=== PATIENT | male | born 1965 | race Caucasian/White ===

== ENCOUNTER 2016-09-09 08:20 | Emergency (ER) | payer MEDICAID ==
[~2016-09-09] VITALS: Ht 152.4 cm; Wt 78.9 kg
[2016-09-09 08:25] VITALS: Ht 152.4 cm; Wt 78.9 kg
[2016-09-09] MEDS ORDERED: IBUP-1542 PO (08:59)
[2016-09-09] MEDS ORDERED: OSLT75C PO (08:59)
[2016-09-09] MEDS ORDERED: GUAI-637 PO (08:59)
[2016-09-09] MEDS ORDERED: IBUPROFEN 600 MG TAB PO ONE (09:00)
--- NOTE | 2016-09-09 09:03 | ERD ---
ER Documentation Chief Complaint Date/Time DATE: 09/09/16 TIME: 09:00 Chief Complaint flu like symptoms x 2 days, body aches,chills, cough HPI Patient is a 50-year-old male who presents to the emergency department with flulike symptoms. Patient states symptoms started 2 days ago. Patient states that he has had low-grade fevers and chills. Patient ports tactile fevers. Patient also states that he has been having clear rhinorrhea. Patient states he has throat pain but denies any trismus, drooling or hyperextension of his neck. Patient states that he does have a productive cough with yellow phlegm production.. Patient also reports headaches and joint pain. Patient states his been taking TheraFlu and DayQuil with no relief of symptoms. Patient denies any abdominal pain, nausea, vomiting, diarrhea, chest pain, shortness of breath. Patient denies receiving flu vaccine this year. No recent travel. No sick contacts. ROS All systems reviewed and are negative except as per history of present illness. Medications Home Meds Active Scripts Ibuprofen* (Ibuprofen*) 600 Mg Tablet, 600 MG PO Q6, #30 TAB Prov:RICHIE FOURNIER PA-C 09/09/16 Oseltamivir Phosphate* (Tamiflu*) 75 Mg Capsule, 75 MG PO BID for 5 Days, CAP Prov:RICHIE FOURNIER PA-C 09/09/16 Guaifenesin* (Robitussin*) 100 Mg/5 Ml Syrup, 100 MG PO Q6H Y for COUGH, #1 BOTTLE Prov:RICHIE FOURNIER PA-C 09/09/16 Allergies Allergies: Coded Allergies: No Known Allergy (Unverified , 09/09/16) PMhx/Soc Medical and Surgical Hx: pt denies Medical Hx, pt denies Surgical Hx Hx Alcohol Use: No Hx Substance Use: No Hx Tobacco Use: No FmHx Family History: No diabetes Physical Exam Vitals Vital Signs Date Time Temp Pulse Resp B/P Pulse Ox O2 Delivery O2 Flow Rate FiO2 09/09/16 08:25 100.0 90 18 142/74 99 Physical Exam GENERAL: Well-developed, well-nourished male. Appears in no acute distress. Speaking in full sentences. HEAD: Normocephalic, atraumatic. No deformities or ecchymosis. EYE: Pupils equal, round, and reactive to light. EOMs intact. No conjunctival erythema. No eye discharge. ENT: External ear without any masses or tenderness. Auditory canals clear bilaterally. TM visualized bilaterally, non-erythematous, non-bulging. Nasal mucosa pink with no discharge. Oropharynx is pink without any tonsillar erythema or exudates. No uvula deviation. No kissing tonsils. Nontender to palpation of bilateral mastoid processes NECK: Supple. No meningismus. Normal ROM of the neck. LUNG: Coarse breath sounds HEART: Regular rate and rhythm. No murmurs, rubs or gallops. ABDOMEN: Soft, nontender, and nondistended. Positive bowel sounds in all four quadrants. No rebound tenderness, no guarding. (-) McBurney's point tenderness. No CVA tenderness. BACK: No midline tenderness. EXTREMITIES: Equal pulses bilaterally. No peripheral clubbing, cyanosis or edema. No unilateral leg swelling. NEUROLOGIC: Alert and oriented to person, place and time. Moving all four extremities. 5/5 strength in all extremities. Normal speech. Steady gait. SKIN: Normal color. Warm and dry. No rashes or lesions. Results 24 hrs Current Medications Medications (Trade) Dose Ordered Sig/Joshua Route PRN Reason Start Time Stop Time Status Last Admin Dose Admin Ibuprofen (Motrin) 600 mg ONCE ONCE PO 09/09/16 09:00 09/09/16 09:01 DC 09/09/16 08:57 Procedures/MDM ED COURSE: The patient was stable throughout ED course. I kept the patient and/or family informed of laboratory and diagnostic imaging results throughout the ED course. DIAGNOSTIC IMAGING: Read by radiologist. DIAGNOSTIC IMAGING REPORT Patient: WALLY VENTURA : 1965 Age: 50 Sex: M MR #: [id number] DOS: 09/09/16 0850 Ordering MD: RICHIE FOURNIER PA-C Location: [facility] Room/Bed: PROCEDURE: XR Chest AP portable CLINICAL INDICATION: Cough, fever TECHNIQUE: An AP portable radiograph of the chest was submitted. COMPARISON: None. FINDINGS: Support Hardware: None Cardiovascular: The cardiovascular silhouette appears unremarkable. Lung Hutchinson: A suboptimal inspiration compresses lung parenchyma and discoid atelectatic change is seen at the medial right lung base. Pleural Spaces: No pneumothorax or pleural effusion is identified. Osseous Structures: The osseous structures appear intact. Soft Tissues: The soft tissues appear unremarkable. IMPRESSION: 1. Suboptimal inspiration with discoid atelectasis seen at the medial right lung base. 2. Otherwise, unremarkable portable chest. Physician Seferino Date Time Electronically viewed and signed by Physician Seferino on 09/09/2016 09:38 RH/ CC: RICHIE FOURNIER PA-C MEDICATIONS GIVEN: Ibuprofen Patient tolerated medication well with no adverse reactions. Patient reported improvement in pain. MEDICAL DECISION MAKING: This is a 50-year-old male who presents with fevers, chills, no pain, cough and body aches 2 days. Patient denied receiving the flu vaccine this year. Vital signs were reviewed. Patient was noted to have 100.0 Fahrenheit temperature upon arrival. Patient was given ibuprofen here in the emergency department which did down trend his temperature. Patient was not hypoxic. ENT exam was normal. Lung exam revealed coarse breath sounds. Chest x-ray was obtained. Chest x-ray showed Suboptimal inspiration with discoid atelectasis seen at the medial right lung base. Otherwise, unremarkable portable chest.. Given these findings, the patients presentation is most consistent with influenza-like symptoms. I have a much lower clinical concern for pneumonia, meningitis, sinusitis, otitis externa, acute otitis media, strep pharyngitis, epiglottitis or peritonsillar abscess. Given that patient states that his symptoms started within the last 48 hours, I will empirically treat the patient with Tamiflu for his flu like symptoms. PRESCRIPTIONS: Ibuprofen, Tamiflu, Robitussin DISCHARGE: At this time, patient is stable for discharge and outpatient management. Supportive therapies such as OTC throat lozenges, salt water gurgles, popsicles and jello discussed. I have instructed the patient to follow-up with his/her primary care physician in 1-2 days. I have instructed the patient to promptly return to the ER for any new or worsening symptoms including increased pain, swelling, fever, nausea, vomiting, weakness or difficulty breathing. The patient and/or family expressed understanding of and agreement with this plan. All questions were answered. Home care instructions were provided. Departure Diagnosis: Primary Impression: Influenza-like symptoms Condition: Stable Patient Instructions: Influenza (Adult) Referrals: [facility] YOU HAVE RECEIVED A MEDICAL SCREENING EXAM AND THE RESULTS INDICATE THAT YOU DO NOT HAVE A CONDITION THAT REQUIRES URGENT TREATMENT IN THE EMERGENCY DEPARTMENT. FURTHER EVALUATION AND TREATMENT OF YOUR CONDITION CAN WAIT UNTIL YOU ARE SEEN IN YOUR DOCTORS OFFICE WITHIN THE NEXT 1-2 DAYS. IT IS YOUR RESPONSIBILITY TO MAKE AN APPOINTMENT FOR FOLOW-UP CARE. IF YOU HAVE A PRIMARY DOCTOR --you should call your primary doctor and schedule an appointment IF YOU DO NOT HAVE A PRIMARY DOCTOR YOU CAN CALL OUR PHYSICIAN REFERRAL HOTLINE AT IF YOU CAN NOT AFFORD TO SEE A PHYSICIAN YOU CAN CHOSE FROM THE FOLLOWING [facility] [address] [facility] [address] [facility] [facility] [address] [facility] [address] [facility] [address] [facility]. [facility] [address] [facility]. [facility] YOU HAVE RECEIVED A MEDICAL SCREENING EXAM AND THE RESULTS INDICATE THAT YOU DO NOT HAVE A CONDITION THAT REQUIRES URGENT TREATMENT IN THE EMERGENCY DEPARTMENT. FURTHER EVALUATION AND TREATMENT OF YOUR CONDITION CAN WAIT UNTIL YOU ARE SEEN IN YOUR DOCTORS OFFICE WITHIN THE NEXT 1-2 DAYS. IT IS YOUR RESPONSIBILITY TO MAKE AN APPOINTMENT FOR FOLOW-UP CARE. IF YOU HAVE A PRIMARY DOCTOR --you should call your primary doctor and schedule and appointment IF YOU DO NOT HAVE A PRIMARY DOCTOR YOU CAN CALL OUR PHYSICIAN REFERRAL HOTLINE AT . IF YOU CAN NOT AFFORD TO SEE A PHYSICIAN YOU CAN CHOSE FROM THE FOLLOWING [facility]: [facility] [address] [place] [address] [facility] [address] [place] [address] [facility] [address] [place] [address] Additional Instructions: Call your primary care doctor TOMORROW for an appointment during the next 1-2 days.See the doctor sooner or return here if your condition worsens before your appointment time. RICHIE FOURNIER PA-C Sep 09, 2016 09:03
--- NOTE | 2016-09-09 09:38 | RADRPT ---
PROCEDURE: XR Chest AP portable CLINICAL INDICATION: Cough, fever TECHNIQUE: An AP portable radiograph of the chest was submitted. COMPARISON: None. FINDINGS: Support Hardware: None Cardiovascular: The cardiovascular silhouette appears unremarkable. Lung Hutchinson: A suboptimal inspiration compresses lung parenchyma and discoid atelectatic change is s een at the medial right lung base. Pleural Spaces: No pneumothorax or pleural effusion is identified. Osseous Structures: The osseous structures appear intact. Soft Tissues: The soft tissues appear unremarkable. IMPRESSION: 1. Suboptimal inspiration with discoid atelectasis seen at the medial right lung base. 2. Otherwise, unremarkable portable chest. Physician Seferino Date Time Electronically viewed and signed by Physician Seferino on 09/09/2016 09:38 /
== END 2016-09-09 09:55 | disposition home or self-care (01) ==
LOC: FTE 08:20
DX: R50.9 Fever, unspecified (principal); R52 Pain, unspecified; R05 Cough
CPT/HCPCS: 71010; Z7502; Z7610